=== PATIENT | male | born 1970 | race Caucasian/White ===

== ENCOUNTER 2017-08-21 09:05 | Emergency (ER) | payer SELFPAY ==
[~2017-08-21] VITALS: Ht 182.9 cm; Wt 123.0 kg
[2017-08-21 09:53] VITALS: BP 121/70
--- NOTE | 2017-08-21 09:55 | NUR ---
PT ASSISTED BY WHEEL CHAIR BACK TO LOBBY; XRAY ORDERED
--- NOTE | 2017-08-21 14:26 | NUR ---
PT W/C ASSISTED TO BED 12.
--- NOTE | 2017-08-21 14:30 | NUR ---
47 M BIB FROM HOME WITH THE C/O 7/10 "PRESSURE" CONSTANT RIGHT KNEE PAIN X 2-3 DAYS, PROGRESSIVELY WORSE. PT DENEIS ANY INJURY OR TRAUMA TO RIGHT KNEE; SWELLING AND TENDERNESS TO TOUCH NOTED; CMS AND SKIN INTACT; PT IS AOX4, RR ARE EVEN AND UNLABORED; NAD; VSS; PT POSITIONED TO COMFORT, BED DOWN. ALL NEEDS MET AT THIS TIME.
--- NOTE | 2017-08-21 15:02 | NUR ---
JADA WRAP TO RIGHT KNEE; CMS INTACT S/P PLACEMENT OF JADA WRAP; PT INSTRUCTED ON USE OF JADA WRAP; PT VERBALIZED UNDERSTANDING.
[2017-08-21] MEDS: KETOROLAC 60 MG/2 ML VIAL IM ONE (15:12)
[2017-08-21 15:35] VITALS: BP 122/80
--- NOTE | 2017-08-21 15:35 | NUR ---
Patient discharged with v/s stable. Written and verbal after care instructions given and explained. Patient alert, oriented and verbalized understanding of instructions. Ambulatory with steady gait. All questions addressed prior to discharge. ID band removed. Patient advised to follow up with PMD. Rx of moTRIN AND NORCO given. Patient educated on indication of medication including possible reaction and side effects. Opportunity to ask questions provided and answered.
== END 2017-08-21 15:35 | disposition home or self-care (01) ==
LOC: MED 09:05
DX: M70.51 Other bursitis of knee, right knee (principal); Y93.89 Activity, other specified
CPT/HCPCS: 73562; 96372; 99284; J1885